=== PATIENT | male | born 1950 | race Caucasian/White ===

== ENCOUNTER → 2017-10-19 | Outpatient (CLI) | payer OTHER ==
[~2017-10-19] MED LIST: CARI350T28 PO; ECHI80CA PO; LISI40TA PO; MELO-83 PO; MULT-1027 PO; POTA99TA PO; PRLSR20 PO
--- NOTE | 2017-10-19 10:51 | DIAGNOSTIC IMAGING REPORT ---
CHEST 2 VIEWS ROUTINE CLINICAL HISTORY: Preoperative chest COMPARISON STUDY: No previous studies for comparison. FINDINGS: The cardiac and mediastinal contours are normal. There is no evidence of focal pulmonary consolidation. There is no evidence of failure. No pleural effusions are visualized.[ There are areas of presumed mild pleural thickening paralleling the left lateral chest wall. IMPRESSION: No active disease in the chest. Electronically signed by: Paul Rm M.D. 10/19/2017 10:49 AM Dictated Date/Time: 10/19/2017 10:48 AM
[2017-10-19 11:18] LABS: ALBUMIN 3.4 gm/dl (3.4-5.0); BLOOD UREA NITROGEN 16 mg/dl (7-18); CALCIUM 9.1 mg/dl (8.5-10.1); CARBON DIOXIDE 25 mmol/L (21-32); CREATININE 1.01 mg/dl (0.60-1.40); GLUCOSE 95 mg/dl (70-99); SODIUM 136 mmol/L (136-145)
[2017-10-19 11:24] LABS: PTT PATIENT 31.7 SECONDS (21.0-31.0)
[2017-10-19 11:26] LABS: HEMATOCRIT 46.2 % (42-52); HEMOGLOBIN 15.7 g/dL (14.0-18.0); MEAN CELL VOLUME 93.9 fL (80-100); MEAN CORPUSCULAR HEMOGLOBIN 31.9 pg (25-34); MEAN PLATELET VOLUME 10.2 fL (7.4-10.4); PLATELET COUNT 92 K/uL (130-400); RED CELL DISTRIBUTION WIDTH CV 13.7 % (11.5-14.5); WHITE BLOOD COUNT 5.55 K/uL (4.8-10.8)
[2017-10-19 11:37] LABS: ALBUMIN 3.3 gm/dl (3.4-5.0); TOTAL PROTEIN 8.8 gm/dl (6.4-8.2)
[2017-10-19 12:39] LABS: HEMOGLOBIN A1C 5.5 % (4.5-5.6)
== END | disposition home or self-care (01) ==
LOC: C.CPL 09:23
PROVIDERS: ATTEND Orthopaedic Surgery
DX: Z01.818 Encounter for other preprocedural examination (principal)

== ENCOUNTER 2017-11-18 04:48 | Inpatient (IN) | payer OTHER ==
[2017-10-14 13:42] VITALS: BMI 25.0
--- NOTE | 2017-10-16 15:45 | PAT Medication Instructions ---
Service Date Oct 16, 2017. Current Home Medication List Carisoprodol (Soma), 350 MG PO UD PRN for Muscle Spasms Echinacea (Echinacea), Unknown Dose PO QAM Lisinopril (Zestril), 40 MG PO BID Meloxicam (Meloxicam), 1 TAB PO UD PRN for PRN Multiple Vitamin (Multi Vitamin), 1 TAB PO QAM Omeprazole (Prilosec), 40 MG PO QAM Potassium (Potassium), Unknown Dose PO QAM Medication Instructions For Your Scheduled Surgery -Instructions per surgeon: Meloxicam (Meloxicam), 1 TAB PO UD PRN for PRN - Hold the following medications 2 weeks prior to surgery: Echinacea (Echinacea), Unknown Dose PO QAM - Hold the following medications the morning of surgery: Carisoprodol (Soma), 350 MG PO UD PRN for Muscle Spasms Lisinopril (Zestril), 40 MG PO BID Multiple Vitamin (Multi Vitamin), 1 TAB PO QAM Potassium (Potassium), Unknown Dose PO QAM - Take the following medications the morning of surgery with a sip of water: Omeprazole (Prilosec), 40 MG PO QAM - Take the following medications as scheduled the night before surgery: Carisoprodol (Soma), 350 MG PO UD PRN for Muscle Spasms (if needed) Lisinopril (Zestril), 40 MG PO BID If you have any questions please call us at [phone] or [phone] or [phone]
--- NOTE | 2017-10-19 09:36 | History and Physical ---
History & Physical Date Oct 19, 2017. Chief Complaint left knee pain History of Present Illness Mr Lu is a 67 year old male who is here for PRE-OPERATIVE VISIT, SCHEDULED FOR LEFT KNEE TKA TO BE PERFORMED BY DR. BURRELL ON 11/18/2017 AT [facility]. The symptoms occur intermittently and is unchanged. Currently the patient states that the symptoms are moderate-severe. The pain is described as aching, discomforting and throbbing. The symptoms occur intermittently. The symptoms are aggravated by daily activities, ascending stairs, descending stairs, first steps while awake, kneeling, movement, repetitive activities, sleeping on the affected side, squatting and walking. Yunior states that the symptoms are relieved by no specific activity. In addition to left knee pain the patient is also experiencing decreased mobility, difficulty bending, difficulty going to sleep, limping, nighttime awakening, pain, stiffness, tenderness and weakness. Pertinent negatives include chills and fever. The patient has had a previous x- ray and MRI. Prior NSAIDs include Mobic. Patient has been treated with previous visco supplementation, Supartz series of 3 injections. Patient has had arthroscopic surgery. 10/10/2015 Dr. Burrell performed left knee arthroscopy with PMM, PLM and Chondroplasty PFJ. 12/14/2014 Dr. Burrell performed left knee arthroscopy with PMM and Chondroplasty. Past Medical/Surgical History Hypertension smoking history, 2 cigarettes/day for over 20 years 7 alcoholic drinks per week Hepatitis h/o left knee arthroscopy x 2, 2014 and 2012 Additional History Hepatic Disease: Yes Hypertension: Yes Other: 5'11" 182 pounds O2 sats 98% Pulse- 84 BP 124/76 Allergies Coded Allergies: No Known Allergies (Unverified , 10/14/17) Home Medications Scheduled Echinacea (Echinacea), Unknown Dose PO QAM Lisinopril (Zestril), 40 MG PO BID Multiple Vitamin (Multi Vitamin), 1 TAB PO QAM Omeprazole (Prilosec), 40 MG PO QAM Potassium (Potassium), Unknown Dose PO QAM Scheduled PRN Carisoprodol (Soma), 350 MG PO UD PRN for Muscle Spasms Meloxicam (Meloxicam), 1 TAB PO UD PRN for PRN Physical Examination Skin: warm/dry, no rash Eyes: normal inspection, EOMI, sclerae normal ENT: normal ENT inspection, pharynx normal Head: normocephalic, atraumatic Neck: supple, no adenopathy, trachea midline Respiratory/Chest: lungs clear, normal breath sounds, no respiratory distress Cardiovascular: regular rate, rhythm, no edema, no murmur Addiitonal Comments: Left Knee Physical Exam: Exam Findings Details Ankle ROM L * Active ROM - Factors: normal, Description: active pain free range of motion. Passive ROM - Factors: normal, Description: passive pain free range of motion. Ankle ROM R * Active ROM - Factors: normal, Description: active pain free range of motion. Passive ROM - Factors: normal, Description: passive pain free range of motion. Hip ROM L * Active ROM - Factors: normal, Description: active pain free range of motion. Passive ROM - Factors: normal, Description: passive pain free range of motion. Hip ROM R * Active ROM - Factors: normal, Description: active pain free range of motion. Passive ROM - Factors: normal, Description: passive pain free range of motion. Knee ROM L * Active ROM - Flexion: 115 degrees, Extension: 3 degrees, Factors: pain, Description: active painful range of motion. Passive ROM - Flexion: 120 degrees, Extension: 3 degrees, Factors: pain, Description: passive painful range of motion. Knee ROM R * Active ROM - Factors: pain, Description: active painful range of motion. Passive ROM - Factors: pain, Description: passive painful range of motion. Strength LE Normal Strength Description - Normal lower extremity: Bilateral. Hip : Right: strength is normal, Left: strength is normal. Knee: Right: strength is normal, Left: strength is normal. Ankle/Foot: Right: strength is normal, Left: strength is normal. Constitutional Normal No acute distress. Well nourished. Well developed. Knee * Inspection - Gait: limp. Alignment - Right: varus, Clinical, Left: varus. Ecchymosis - Right: none, Left: none. Effusion - Right: mild, Left: moderate, supra-patella. Swelling - Right: mild, Left: moderate. Maximum tenderness - Right: diffuse, Left: diffuse. Patella exam - Crepitation - Right: moderate, Left: moderate. [facility]'s - lateral - Right: Positive, Left: Positive. [facility]'s - medial - Right: Positive, Left: Positive. Knee Comments Calf SNT, DP+2 Knee Normal Inspection - Atrophy - Right: Absent, Left: Absent. Patella exam - Apprehension - Right: Negative, Left: Negative. Nedra's - Right: Negative, Left: Negative. Posterior drawer - Left: Negative. Sag sign - Left: Negative. Anterior drawer - Left: Negative. Valgus stress - Right: Negative, Left: Negative. Varus stress - Right: Negative, Left: Negative. Extensor lag - Right: Normal, Left: Normal. Neurovascular LE Normal Neurovascular examination including reflexes, sensation , and pulses is within normal limits. Psychiatric Normal Orientation - Oriented to time, place, person & situation. Not anxious. Diagnostics: Study Result/Report X-RAY Knee 4 Or More Views LT knee Standing weight bearing flexed knee PA views reveal [id number] articulation tricompartmental of the knee, Joint space narrowing, Osteophyte formation is noted. DJD of the patellofemoral articulation. ASSESSMENT: Tricompartmental degenerative changes of the left knee. Diagnosis Left knee osteoarthritis Plan of Treatment Further care discussed with patient and at this point in time has failed conservative measures and would like to proceed with a left total knee replacement. Plan on discharge will be home with home health physical therapy. DVT prophalaxis with TEDs, SCDs and will also place on aspirin 81 mg p.o. b.i.d. for a month postop. Patient will have follow up appointment in our office two weeks post op for staple/suture removal and re-evaluation. Patient otherwise has no other questions or concerns.
[2017-10-19 09:37] VITALS: BMI 25.0
[~2017-11-18] VITALS: Ht 180.3 cm; Wt 82.5 kg
[2017-11-18] VITALS (9 sets, daily range): BP systolic 123–147; BP diastolic 71–87; PULSE 73–85; TEMP 36.5–36.8; O2SAT 76–98; Ht 180.3 cm; Wt 82.5 kg
[2017-11-18] MEDS ORDERED: TRAM-10 PO (05:32)
[2017-11-18 05:34] LABS: HEMATOCRIT 39.2 % (42-52); HEMOGLOBIN 13.5 g/dL (14.0-18.0); MEAN CELL VOLUME 93.1 fL (80-100); MEAN CORPUSCULAR HEMOGLOBIN 32.1 pg (25-34); MEAN PLATELET VOLUME 9.3 fL (7.4-10.4); PLATELET COUNT 112 K/uL (130-400); RED CELL DISTRIBUTION WIDTH CV 13.8 % (11.5-14.5); RED CELL DISTRIBUTION WIDTH SD 46.8 fL (36.4-46.3); WHITE BLOOD COUNT 4.72 K/uL (4.8-10.8)
[2017-11-18 05:41] LABS: MEAN CORPUSCULAR HGB CONC 34.4 g/dl (32-36)
[2017-11-18] MEDS ORDERED: ACETAMINOPHEN 500 MG TAB PO SCH (06:00)
[2017-11-18] MEDS ORDERED: CEFAZOLIN 2000MG IV PUSH 15 ML IV SCH (06:00)
[2017-11-18] MEDS ORDERED: METOCLOPRAMIDE HCL 10 MG TAB PO SCH (06:00)
[2017-11-18] MEDS ORDERED: ROPIVACAINE 5MG/ML 30 ML 150 MG, BUPIVACAINE 0.5% MPF INJ 30 ML, EpINEphrine HCL INJ 0.... INFIL SCH ×8 (06:00)
[2017-11-18] MEDS ORDERED: FAMOTIDINE 20 MG TAB PO SCH (06:00)
[2017-11-18] MEDS ORDERED: GABAPENTIN 300 MG CAP PO SCH (06:00)
[2017-11-18] MEDS ORDERED: CeleBREX 200 MG CAP PO SCH (06:00)
[2017-11-18] MEDS ORDERED: DEXAMETHASONE 4 MG TAB PO SCH (06:00)
[2017-11-18] MEDS ORDERED: LACTATED RINGER'S 1000ML 500 ML IV SCH (06:00)
[2017-11-18] MEDS ORDERED: LACTATED RINGER'S 1000ML 1,000 ML IV SCH (06:00)
[2017-11-18] MEDS ORDERED: PROPOFOL IV EMULSION 10 MG/ML 20 ML VIAL ONE ×3 (06:13→08:24)
[2017-11-18] MEDS ORDERED: MIDAZOLAM HCL 1 MG/ML 2ML VIAL ONE (06:13)
[2017-11-18] MEDS ORDERED: LIDOCAINE HCL 2% 2 ML VIAL (20MG/ML) ONE (06:13)
[2017-11-18] MEDS ORDERED: FENTANYL CITRATE INJ 50 MCG/1 ML 2 ML VIAL ONE ×2 (06:14→08:04)
[2017-11-18] MEDS ORDERED: ROPIVACAINE 0.5% 5 MG/ML 30 ML VIAL ONE (06:29)
[2017-11-18] MEDS ORDERED: BUPIVACAINE 0.5 % 5 MG/1 ML PF 10ML VIAL ONE (06:29)
[2017-11-18] MEDS ORDERED: POVIDONE-IODINE OP SOLN 30 ML BTL ONE (06:56)
[2017-11-18] MEDS ORDERED: BACITRACIN 50000 UNIT VIAL ONE (06:56)
[2017-11-18] MEDS ORDERED: ORTHO JOINT ANESTHETIC ONE (06:56)
[2017-11-18] MEDS: TRANEXAMIC ACID INJ 1,000 MG x 2 Bags IV SCH ×4 (06:57→11:03)
--- NOTE | 2017-11-18 07:11 | History & Physical Bridge Note ---
H&P Re-Evaluation Bridge Note: I have examined the patient, reviewed the History & Physical and in the interval since the performance of the History & Physical I have noted the following changes of clinical significance: No changes noted
[2017-11-18] MEDS ORDERED: EpHEDrine SULFATE 50MG/5ML SYR ONE (07:40)
[2017-11-18] MEDS ORDERED: ONDANSETRON INJ 2 MG/ML 2 ML VIAL ONE (07:40)
[2017-11-18] MEDS ORDERED: HYDROmorphone INJ 1 MG/ML SYR IV PRN (08:00)
[2017-11-18] MEDS ORDERED: ONDANSETRON INJ 2 MG/ML 2 ML VIAL IV PRN ×2 (08:00→09:15)
[2017-11-18] MEDS ORDERED: EpHEDrine SULFATE INJ 50 MG/ML AMP IV PRN (08:00)
[2017-11-18] MEDS ORDERED: MEPERIDINE HCL 25 MG/ML CARP IV PRN (08:00)
[2017-11-18] MEDS ORDERED: ATROPINE SULFATE 0.1 MG/ML 5ML SYR IV PRN (08:00)
[2017-11-18] MEDS ORDERED: FENTANYL CITRATE INJ 50 MCG/1 ML 2 ML VIAL IV PRN (08:00)
[2017-11-18] MEDS ORDERED: LABETALOL HCL IV 5 MG/ML 20ML IV PRN (08:00)
--- NOTE | 2017-11-18 08:29 | [facility] Post Operative Brief Note ---
Immediate Operative Summary Operative Date Nov 18, 2017. Pre-Operative Diagnosis Left knee osteoarthritis Post-Operative Diagnosis Left knee osteoarthritis Procedure(s) Performed Left Total Knee Arthroplasty utilizing [employer] journey to patient match total knee arthroplasty size 5 femur 4 tibia with a 14 mm x 100 mm stem 12 mm polyethylene and [address] Melonie Stapleton Sisal Picker Surgeon(s) Naman Maldonado PA-C Estimated Blood Loss 5mL Findings Consistent with Post-Op Diagnosis Specimens A: Left knee bone & tissue Anesthesia Type MAC Spinal Regional Complication(s) none Disposition Disposition: Recovery Room / PACU
--- NOTE | 2017-11-18 08:31 | [facility] Operative Report ---
Operative Report Operative Date Nov 18, 2017. Pre-Operative Diagnosis Left knee osteoarthritis Post-Operative Diagnosis Left knee osteoarthritis Procedure(s) Performed Left Total Knee Arthroplasty utilizing [employer] journey to patient match total knee arthroplasty size 5 femur 4 tibia with a 14 mm x 100 mm stem 12 mm polyethylene and [address] Melonie Stapleton Supervisor Process Testing Surgeon(s) Naman Maldonado PA-C Estimated Blood Loss 5mL Findings Patient presents with severe end-stage DJD of the left knee and no response to conservative measures including injections physical therapy anti-inflammatories relative rest activity modification patient has severe DJD with bone loss subchondral cystic changes which are significant there is a large posterior tibial plateau cyst multiple cyst within the femur marginal osteophyte subchondral sclerosis were all found the bone was noted be very soft nature as well with marketed synovitis a significant synovectomy was performed as well as curettage and tibial and femoral bone cysts. Specimens A: Left knee bone & tissue Anesthesia Type MAC Spinal Regional Complication(s) none Disposition Recovery Room / PACU Indications Patient presents after failing attempts at conservative management including physical therapy anti-inflammatories relative rest activity modification severe end-stage DJD of the left knee preoperative findings and intraoperative findings were noted above patient's failed attempts at conservative management presents for total knee arthroplasty time surgery due to softened bone and multiple cystic changes in the tibia a stem prosthesis on the tibia was placed the bone cysts were filled with methylmethacrylate wound was thoroughly irrigated implant that had been placed on a dry surface Description of Procedure After proper prepping and draping of the left lower extremity anterior midline incision was made over the region of the extensor extensor mechanism after meticulous hemostasis was obtained and maintained in subcutaneous tissues a medial parapatellar incision was made The patella was subluxed lateralward the medial lateral gutter were cleaned from any hypertrophic synovitis and scar tissue of the distal femoral block was placed and the distal femoral osteotomy cut was made subsequently the chamfers anterior and posterior osteotomy cuts were made utilizing the 4-in-1 block the tibia was subsequently subluxed anteriorward medial and ateral meniscal remnants were excised in their entirety remnants of the anterior and posterior cruciate ligaments were excised in their entirety excellent exposure of the proximal tibia was obtained the tibial osteotomy guide was placed on the proximal tibial osteotomy cut was made once again the knee was irrigated with copious amounts of sterile saline solution the patella was subsequently everted lateralward thickened scar tissue around the patella was removed the patella was subsequently cut utilizing a freehand technique and was drilled prepared for final preparation and placement of patella socially flexion-extension gaps were checked and the equal and symmetric trials were placed to the appropriate femoral and tibial trials with poly-spacer being placed for equal flexion and extension gaps and full range of motion including extension to 0 and flexion to 140 the trial components after having been taken to recovery range of motion was subsequently removed meticulous hemostasis was obtained and maintained subsequently a knee block injection of joint cocktail including ropivacaine 0.5% 150 mg. Bupivacaine 0.5 % epinephrine 1-200,030 mL's toradol 30 mg dexamethasone 4 mg ketamine 10 mg clonidine 100 micrograms normal saline solution 30 mg was infiltrated into the soft tissues of the posterior knee medial lateral gutters and periosteal synovium special attention was paid to protect neurovascular structures at all times subsequently trial components having been removed the knee was irrigated with sterile saline solution. debris was removed the proximal tibia was subsequently prepared and was made ready for the placement of the tibial component tibial component was also cemented and tamped into position the femoral component was subsequently placed and cemented in the position the patellar component was subsequently cemented in position because hemostasis once again obtained and maintained wound having been thoroughly irrigated with debridement and debridement lavage was performed as well as a medial parapatellar incision closed with #1 Vicryl in interrupted fashion subcutaneous was closed with #2 Vicryl skin was closed with skin clips. PA-C was necessary for prepping and drapping as well as wound closure of deep fascia Sub cutaneous tissue and skin and was necessary for the case. A sterile compressive dressing was placed patient was taken to recovery in stable condition of report dictated by Pieter I attest to the content of the Intraoperative Record and any orders documented therein. Any exceptions are noted below. I attest to the content of the Intraoperative Record and any orders documented therein. Any exceptions are noted below.
[2017-11-18] MEDS ORDERED: TRAMADOL HCL 50 MG TAB PO PRN (09:15)
[2017-11-18] MEDS ORDERED: MoRPHine SULFATE 2 MG/ML CARP IV PRN ×2 (09:15→11:15)
[2017-11-18] MEDS ORDERED: ALUMINUM/MAGNESIUM/SIMETH (MAALOX MAX) 30 ML UDC PO PRN (09:15)
[2017-11-18] MEDS ORDERED: MAGNESIUM HYDROXIDE SUSP 30 ML UDC PO PRN (09:15)
[2017-11-18] MEDS ORDERED: BISACODYL 10 MG SUPP PR PRN (09:15)
[2017-11-18] MEDS ORDERED: ZOLPIDEM TARTRATE 5 MG TAB PO PRN (09:15)
[2017-11-18] MEDS ORDERED: KETOROLAC TROMETHAMINE 15 MG/ML VIAL IV. PRN (09:15)
[2017-11-18] MEDS ORDERED: SOD PHOSPHATE/SOD BIPHOSPHATE ENEMA 132 ML BTL PR PRN (09:15)
--- NOTE | 2017-11-18 09:31 | DIAGNOSTIC IMAGING REPORT ---
L KNEE 1 OR 2 VIEWS ROUTINE CLINICAL HISTORY: Postoperative evaluation. COMPARISON: Left knee radiographs October 09, 2017 and MRI of the left knee October 19, 2017. FINDINGS: Alignment of the total left knee arthroplasty is anatomic. There is no fracture or unexpected radiopaque foreign body. Surgical drains are in place. IMPRESSION: Expected findings following total left knee arthroplasty Electronically signed by: Hiren Rivera M.D. 11/18/2017 9:30 AM Dictated Date/Time: 11/18/2017 9:29 AM
--- NOTE | 2017-11-18 11:02 | Anesthesiology Progress Note ---
Anesthesia Post Op Note Date & Time Nov 18, 2017 at 11:02 Vital Signs Pain Intensity: 0 Vital Signs Past 12 Hours Date Time Temp Pulse Resp B/P (MAP) Pulse Ox O2 Delivery O2 Flow Rate FiO2 11/18/17 10:26 85 18 145/87 (106) 97 2.0 11/18/17 10:00 97 Nasal Cannula 2.0 11/18/17 10:00 97 Nasal Cannula 2.0 11/18/17 10:00 36.5 73 16 124/71 (88) 97 Nasal Cannula 2.0 11/18/17 09:45 36.9 74 16 127/80 98 Nasal Cannula 2 11/18/17 09:40 85 16 142/87 100 Nasal Cannula 2 11/18/17 09:30 80 16 145/77 100 Nasal Cannula 2 11/18/17 09:20 69 16 119/77 99 Nasal Cannula 2 11/18/17 09:10 85 20 118/73 99 Nasal Cannula 2 11/18/17 09:04 36.3 77 20 117/69 99 Nasal Cannula 2 11/18/17 05:41 36.5 74 20 147/ 97 Room Air Notes Mental Status: alert / awake / arousable, participated in evaluation Pt Amnestic to Procedure: Yes Nausea / Vomiting: adequately controlled Pain: adequately controlled Airway Patency, RR, SpO2: stable & adequate BP & HR: stable & adequate Hydration State: stable & adequate Neuraxial Anesthesia: was administered, sensory block is resolving Anesthetic Complications: no major complications apparent
[2017-11-18] MEDS: D5W AND 1/2NSS + 20MEQ KCL 1,000 ML IV SCH ×2 (11:04→20:41)
[2017-11-18] MEDS ORDERED: MoRPHine SULFATE 4 MG/ML 1 ML CARP\\VIAL IV PRN (11:15)
[2017-11-18] MEDS ORDERED: MoRPHine SULFATE 10 MG/ML CARP/VIAL IV PRN (11:15)
[2017-11-18] MEDS: ACETAMINOPHEN 500 MG TAB PO SCH ×2 (14:11→21:40)
[2017-11-18] MEDS: CEFAZOLIN IV 2,000 MG in SYRINGE 0 ML IV SCH (15:52)
[2017-11-18] MEDS ORDERED: CEFAZOLIN IV 2,000 MG in DEXTROSE 5% 50ML 50 ML IV SCH (16:00)
[2017-11-18] MEDS: DOCUSATE SODIUM 100 MG CAP PO SCH (20:42)
[2017-11-18] MEDS: SENNA 8.6 MG TAB PO SCH (20:42)
[2017-11-18] MEDS: LISINOPRIL 40 MG TAB PO SCH (20:43)
[2017-11-18] MEDS: ASPIRIN 81 MG ECTAB PO SCH (20:43)
[2017-11-18] MEDS: OXYCODONE HCL IR 5 MG TAB (IMMEDIATE RELEASE) PO PRN (21:41)
[2017-11-19] MEDS: CEFAZOLIN IV 2,000 MG in SYRINGE 0 ML IV SCH (00:26)
[2017-11-19 03:20] VITALS: BP 136/79; PULSE 74; TEMP 36.6; O2SAT 98
[2017-11-19] MEDS: OXYCODONE HCL IR 5 MG TAB (IMMEDIATE RELEASE) PO PRN ×4 (04:47→19:45)
[2017-11-19] MEDS: D5W AND 1/2NSS + 20MEQ KCL 1,000 ML IV SCH (04:50)
[2017-11-19] MEDS: ACETAMINOPHEN 500 MG TAB PO SCH ×3 (05:34→20:54)
[2017-11-19 07:04] LABS: HEMATOCRIT 34.3 % (42-52); HEMOGLOBIN 11.8 g/dL (14.0-18.0); MEAN CELL VOLUME 92.5 fL (80-100); MEAN CORPUSCULAR HEMOGLOBIN 31.8 pg (25-34); MEAN CORPUSCULAR HGB CONC 34.4 g/dl (32-36); RED CELL DISTRIBUTION WIDTH CV 13.7 % (11.5-14.5); RED CELL DISTRIBUTION WIDTH SD 46.3 fL (36.4-46.3); WHITE BLOOD COUNT 4.88 K/uL (4.8-10.8)
[2017-11-19 07:18] VITALS: BP 149/87; PULSE 75; TEMP 36.8; O2SAT 98
[2017-11-19 07:23] LABS: INR 1.1 (0.9-1.1)
[2017-11-19 07:34] LABS: MEAN PLATELET VOLUME 9.7 fL (7.4-10.4); PLATELET COUNT 94 K/uL (130-400)
[2017-11-19 07:43] LABS: CALCIUM 8.4 mg/dl (8.5-10.1); CREATININE 0.81 mg/dl (0.60-1.40); POTASSIUM 4.2 mmol/L (3.5-5.1)
[2017-11-19] MEDS: MULTIVITAMIN TAB PO SCH (08:40)
[2017-11-19] MEDS: LISINOPRIL 40 MG TAB PO SCH ×2 (08:40→20:54)
[2017-11-19] MEDS: PANTOprazole SOD 40 MG TAB PO SCH (08:41)
[2017-11-19] MEDS: ASPIRIN 81 MG ECTAB PO SCH ×2 (08:41→20:52)
[2017-11-19] MEDS: DOCUSATE SODIUM 100 MG CAP PO SCH ×2 (08:41→20:52)
--- NOTE | 2017-11-19 09:32 | Orthopedic Progress Note ---
Orthopedic Progress Note Date of Service Nov 19, 2017. Subjective Post OP Day: 1 Reports: feeling well, complaints (mild pain in the knee this AM), Denies: chest pain, SOB, nausea / vomiting, light headedness, calf pain Additional Notes: Pt states he had a BM this AM. Discussed possible dc home today. Pt unsure if he wants to go home today vs tomorrow. Will decide later today pending PT etc. Objective calves soft nontender, N/V intact, dressing C/D/I, A&O x3, toes mobile, hemovac drainage (50ml latest shift) Date Time Temp Pulse Resp B/P (MAP) Pulse Ox O2 Delivery O2 Flow Rate FiO2 11/19/17 07:30 Room Air 11/19/17 07:18 36.8 75 18 149/87 (107) 98 Room Air 11/19/17 03:20 36.6 74 20 136/79 (98) 98 Room Air 11/19/17 00:30 Room Air 11/18/17 23:24 36.5 74 18 134/79 (97) 97 Room Air 11/18/17 19:34 36.5 79 16 129/73 (91) 97 Room Air 11/18/17 16:25 36.8 77 16 136/74 (94) 95 Room Air 11/18/17 16:01 Room Air 11/18/17 13:00 78 18 123/75 (91) 76 2.0 11/18/17 12:00 85 18 131/79 (96) 98 2.0 11/18/17 11:02 75 16 135/79 (97) 98 11/18/17 10:26 85 18 145/87 (106) 97 2.0 11/18/17 10:00 97 Nasal Cannula 2.0 11/18/17 10:00 97 Nasal Cannula 2.0 11/18/17 10:00 36.5 73 16 124/71 (88) 97 Nasal Cannula 2.0 11/18/17 09:45 36.9 74 16 127/80 98 Nasal Cannula 2 11/18/17 09:40 85 16 142/87 100 Nasal Cannula 2 11/18/17 09:30 80 16 145/77 100 Nasal Cannula 2 Laboratory Results 24 Hours: Test 11/19/17 06:18 Hematocrit 34.3 % Hemoglobin 11.8 g/dL Prothromb Time International Ratio 1.1 Prothrombin Time 11.2 SECONDS Assessment & Plan Assessment: POD 1 s/p Left TKA Plan: PT/OT Planning for HH Services upon DC Inhouse Planning Pain Management: Celebrex, Ultram, Morphine, PO Tylenol, Oxy IR DVT Prophylaxis: TEDs, SCDs, ASA Discharge Planning Discharge Planning: home with home health
[2017-11-19] MEDS ORDERED: ACET-24 PO (09:36)
[2017-11-19] MEDS ORDERED: SENN-61 PO (09:36)
[2017-11-19] MEDS ORDERED: CLB200 PO (09:36)
[2017-11-19] MEDS ORDERED: ASPI-461 PO (09:36)
[2017-11-19] MEDS ORDERED: RXC5 PO (09:36)
--- NOTE | 2017-11-19 09:45 | Discharge Instructions ---
Discharge Instructions Date of Service Nov 19, 2017. Admission Reason for Admission: Left Knee Osteoarthritis Discharge Discharge Diagnosis / Problem: Left Knee Osteoarthritis Discharge Goals Goal(s): Decrease discomfort, Improve function, Increase independence Activity Recommendations Activity Limitations: per Instructions/Follow-up section Weightbearing Status: Left weightbearing (as tolerated) . Instructions / Follow-Up Instructions / Follow-Up ACTIVITY RECOMMENDATIONS: SELF CARE INSTRUCTIONS AFTER TOTAL KNEE REPLACEMENT A. You may need to continue a physical therapy program after discharge from the hospital. There are several options available to you. Your doctor will assist you in selecting the best one for you. 1. An out-patient facility 2 to 3 times a week for therapy or home therapy. 2. Continue working on all exercises taught to you in the hospital. Your goals should be to increase bending of your knee to 90 degrees and beyond and to fully straighten your knee. B. You may progress at your own pace from walking with a walker or crutches to a cane; then to no assistive devices. C. Make walking a part of your daily routine. Be up as much as comfortable with rest periods throughout the day. Rest with leg elevation is very important. Use the ice wrap frequently for the first 3-4 weeks. D. There are no restrictions on activities. You may ride in a car, shop, participate in residence supervisor and all social activities. E. Wear the long elastic stockings (KRISTIN hose) 20 hours a day for 2 weeks after surgery. They can be removed several times a day for laundering and for a bath. F. You may shower, no tub baths until cleared by your doctor. YOU WILL BE TAKING OXYCODONE FOR PAIN CONTROL. PLEASE DO NOT TAKE YOUR TRAMADOL AT THIS TIME. KNOW THAT TAKING THE TRAMADOL (AND YOUR MUSCLE RELAXER CARISOPRODOL) CAN INCREASE YOUR DROWSINESS AND OR SLOW DOWN OR STOP YOUR BREATHING WHEN COUPLED WITH YOUR OXYCODONE. PLEASE CALL THE OFFICE IF YOUR PAIN IS NOT CONTROLLED. SPECIAL CARE INSTRUCTIONS: VERY IMPORTANT TO READ AND REVIEW A. There are a few signs you need to watch for after you are home. Call [facility] if you notice any of the followin. Increased severe knee pain. Some pain is expected especially when you exercise. 2. Increased swelling in your leg or knee; pain or swelling of the calf muscle in either lower leg. 3. Any fluid drainage from the incision. 4. Shortness of breath or chest pain. B. Please call [facility] at if you have any concerns or questions about your operation or recovery. The doctor or his nurse will return your call promptly. C. You must take antibiotics before dental work, bladder, bowel or other surgery. Your doctor will provide you with a permanent care to carry describing this precaution. IMPORTANT: * REMEMBER TO TAKE ASPIRIN, 81 MG, TWICE DAILY FOR 4 WEEKS UNLESS OTHERWISE DIRECTED. THIS IS YOUR BLOOD THINNER. * HIGH RISK PATIENTS MAY BE PRESCRIBED A STRONGER BLOOD THINNER. THIS WILL BE PROVIDED AT DISCHARGE. * CALL IF INCREASED PAIN, REDNESS, DRAINAGE OR FEVER GREATER THAT 101. * WEAR KRISTIN HOSE 20 HOURS PER DAY FOR 2 WEEKS. * DERMABOND Prineo- This is a mesh tape dressing that is covered with glue. It should remain in place until the incision is properly healed, usually 10-14 days. This dressing is designed to naturally slough off. You may trim the excess mesh tape as it peels off. Incision may be briefly wet in a shower. Dry immediately by blotting with a clean, dry towel. Do not bath or swim until instructed by your doctor. Do not scratch, rub, or pick at the dressing. Do not apply any topical ointments or lotions until dressing is completely removed and/or instructed by your doctor. There may be a small piece of suture material at one end of your incision. Do not pull or trim this. If it is bothersome or catching on clothing, you may cover it with a band-aid. . FOLLOW UP VISIT: If appointment is not already scheduled: Please call [facility] to make a follow-up appointment for 2 weeks after your surgery at . Current Hospital Diet Patient's current hospital diet: Regular Diet Discharge Diet Recommended Diet: Regular Diet Procedures Procedures Performed: Left Total Knee Arthroplasty utilizing [employer] journey to patient match total knee arthroplasty size 5 femur 4 tibia with a 14 mm x 100 mm stem 12 mm polyethylene and 32 oval patella Pending Studies Studies pending at discharge: no Laboratory Results Hemoglobin A1c Test 10/19/17 10:15 Range/Units Estimated Average Glucose 111 mg/dl Hemoglobin A1c 5.5 4.5-5.6 % Medical Emergencies . Who to Call and When: Medical Emergencies: If at any time you feel your situation is an emergency, please call 911 immediately. . Non-Emergent Contact Non-Emergency issues call your: Surgeon Call Non-Emergent contact if: temperature is above 101.5, your pain is not controlled, your pain is worsening, wound has increased drainage, wound has increased redness . "Provider Documentation" section prepared by Pop Almaraz. . [place] Drug Monitoring Program Search Results: patient reviewed within database, see additional documentation Drug Monitoring Findings: Pt taking Tramadol prn which will be held during the post operative period. Also taking Carisoprodol for muscle relaxation.
[2017-11-19 11:08] VITALS: BP 156/91; PULSE 69; TEMP 36.8; O2SAT 97
[2017-11-19 15:21] VITALS: BP 150/90; PULSE 83; TEMP 36.6; O2SAT 98
[2017-11-19] MEDS: SENNA 8.6 MG TAB PO SCH (20:52)
[2017-11-19] MEDS: CeleBREX 200 MG CAP PO SCH (20:53)
[2017-11-19 23:34] VITALS: BP 168/99; PULSE 89; TEMP 36.9; O2SAT 97
[2017-11-20 05:00] VITALS: BP 154/95
[2017-11-20] MEDS: ACETAMINOPHEN 500 MG TAB PO SCH (05:49)
[2017-11-20 06:37] VITALS: BP 164/99; PULSE 73; TEMP 36.7; O2SAT 99
[2017-11-20] MEDS: LISINOPRIL 40 MG TAB PO SCH (07:35)
[2017-11-20] MEDS: MULTIVITAMIN TAB PO SCH (07:35)
[2017-11-20] MEDS: CeleBREX 200 MG CAP PO SCH (07:35)
[2017-11-20] MEDS: DOCUSATE SODIUM 100 MG CAP PO SCH (07:35)
[2017-11-20] MEDS: ASPIRIN 81 MG ECTAB PO SCH (07:36)
[2017-11-20] MEDS: PANTOprazole SOD 40 MG TAB PO SCH (07:36)
[2017-11-20] MEDS: OXYCODONE HCL IR 5 MG TAB (IMMEDIATE RELEASE) PO PRN ×3 (07:38→12:03)
--- NOTE | 2017-11-20 09:22 | Orthopedic Progress Note ---
Orthopedic Progress Note Date of Service Nov 20, 2017. Subjective Post OP Day: 2 Reports: feeling well, Denies: complaints Additional Notes: Feeling much better today. Pain control is good today. Just finished PT and doing well. Wanting to go home today. Objective calves soft nontender, N/V intact, incision C/D/I, A&O x3, toes mobile Date Time Temp Pulse Resp B/P (MAP) Pulse Ox O2 Delivery O2 Flow Rate FiO2 11/20/17 07:50 Room Air 11/20/17 06:37 36.7 73 14 164/99 (120) 99 Room Air 11/20/17 05:00 154/95 (114) 11/20/17 00:15 Room Air 11/19/17 23:34 36.9 89 16 168/99 (122) 97 Room Air 11/19/17 15:21 36.6 83 16 150/90 (110) 98 Room Air 11/19/17 15:05 Room Air 11/19/17 11:08 36.8 69 17 156/91 (112) 97 Room Air Assessment & Plan Assessment: POD 2 s/p Left TKA Plan: PT/OT Planning for HH Services upon DC DC to home today Inhouse Planning Pain Management: Celebrex, Ultram, Morphine, PO Tylenol, Oxy IR DVT Prophylaxis: TEDs, SCDs, ASA Discharge Planning Discharge Planning: home with home health
[2017-11-20 09:25] VITALS: BP 164/99; PULSE 73; TEMP 36.7; O2SAT 99
[2017-11-20] MEDS ORDERED: RXC5 PO (09:25)
--- NOTE | 2017-11-20 15:20 | Discharge Summary ---
Orthopedic Discharge Summary Admission Date/Reason Nov 18, 2017 at 06:45 Left Knee Osteoarthritis. Discharge Date/Disposition Nov 20, 2017 Home with services Diagnosis Principal Diagnosis: LEFT KNEE OSTEOARTHRITIS Procedure(s) Performed Left Total Knee Arthroplasty utilizing [facility] journey to patient match total knee arthroplasty size 5 femur 4 tibia with a 14 mm x 100 mm stem 12 mm polyethylene and 32 oval patella Consultations NONE Medication Reconciliation New Medications: Acetaminophen (Sb Non-Aspirin Extra Stre) 500 Mg Tab 1000 MG PO Q8H for 14 Days, #84 TAB Aspirin (Aspirin) 81 Mg Tab 81 MG PO BID for 30 Days, #60 TAB Celecoxib (Celebrex) 200 Mg Cap 200 MG PO BID, #60 CAP Oxycodone HCl (Oxycodone HCl) 5 Mg Tab 5-10 MG PO q4-6h PRN for Pain, #30 TAB Senna (Senokot) 8.6 Mg Tab 17.2 MG PO HS, #30 TAB Continued Medications: Carisoprodol (Soma) 350 Mg Tab 350 MG PO UD PRN for Muscle Spasms, TAB Echinacea (Echinacea) Unknown Strength Cap Unknown Dose PO QAM Lisinopril (Zestril) 40 Mg Tab 40 MG PO BID, TAB Multiple Vitamin (Multi Vitamin) 1 Tab Tab 1 TAB PO QAM "OMEGA MAN" MULTIVITAMIN Omeprazole (Prilosec) 20 Mg Capcr 40 MG PO QAM, CAP PRN ORDERS FOR THIS MED Potassium (Potassium) Unknown Strength Tab Unknown Dose PO QAM Discontinued Medications: Meloxicam (Meloxicam) 15 Mg Tab 1 TAB PO UD PRN for PRN Tramadol (Ultram) 50 Mg Tab 50 MG PO Q6H PRN for Pain, TAB Admission Physical Exam As per Admitting History & Physical. Hospital Course Patient was a same day admission after undergoing a successful left TKA. He tolerated the procedure well. Post-operatively, his activity was progressed and well tolerated. Please refer to daily progress notes and PT notes for complete details. After exam on 11/20/17, patient felt to be stable for discharge home with HHPT. Patient will f/u in the office in 2 weeks for further evaluation including x-rays and incision check, sooner if having any issues or concerns. Below are pertinent labs/studies during their hospital stay: Last Resulted CBC 11/19/17 06:18 Last Resulted BMP 11/19/17 06:18 Last Vital Signs Documentation Date Time Temp Pulse Resp B/P (MAP) Pulse Ox O2 Delivery O2 Flow Rate FiO2 11/20/17 09:25 36.7 73 14 99 Room Air 11/20/17 06:37 164/99 (120) 11/18/17 13:00 2.0 Discharge Instructions ACTIVITY RECOMMENDATIONS: SELF CARE INSTRUCTIONS AFTER TOTAL KNEE REPLACEMENT A. You may need to continue a physical therapy program after discharge from the hospital. There are several options available to you. Your doctor will assist you in selecting the best one for you. 1. An out-patient facility 2 to 3 times a week for therapy or home therapy. 2. Continue working on all exercises taught to you in the hospital. Your goals should be to increase bending of your knee to 90 degrees and beyond and to fully straighten your knee. B. You may progress at your own pace from walking with a walker or crutches to a cane; then to no assistive devices. C. Make walking a part of your daily routine. Be up as much as comfortable with rest periods throughout the day. Rest with leg elevation is very important. Use the ice wrap frequently for the first 3-4 weeks. D. There are no restrictions on activities. You may ride in a car, shop, participate in veneer sample maker and all social activities. E. Wear the long elastic stockings (KRISTIN hose) 20 hours a day for 2 weeks after surgery. They can be removed several times a day for laundering and for a bath. F. You may shower, no tub baths until cleared by your doctor. SPECIAL CARE INSTRUCTIONS: VERY IMPORTANT TO READ AND REVIEW A. There are a few signs you need to watch for after you are home. Call [facility] if you notice any of the followin. Increased severe knee pain. Some pain is expected especially when you exercise. 2. Increased swelling in your leg or knee; pain or swelling of the calf muscle in either lower leg. 3. Any fluid drainage from the incision. 4. Shortness of breath or chest pain. B. Please call [facility] at if you have any concerns or questions about your operation or recovery. The doctor or his nurse will return your call promptly. C. You must take antibiotics before dental work, bladder, bowel or other surgery. Your doctor will provide you with a permanent care to carry describing this precaution. IMPORTANT: * REMEMBER TO TAKE ASPIRIN, 81 MG, TWICE DAILY FOR 4 WEEKS UNLESS OTHERWISE DIRECTED. THIS IS YOUR BLOOD THINNER. * HIGH RISK PATIENTS MAY BE PRESCRIBED A STRONGER BLOOD THINNER. THIS WILL BE PROVIDED AT DISCHARGE. * CALL IF INCREASED PAIN, REDNESS, DRAINAGE OR FEVER GREATER THAT 101. * WEAR KRISTIN HOSE 20 HOURS PER DAY FOR 2 WEEKS. * DERMABOND Prineo- This is a mesh tape dressing that is covered with glue. It should remain in place until the incision is properly healed, usually 10-14 days. This dressing is designed to naturally slough off. You may trim the excess mesh tape as it peels off. Incision may be briefly wet in a shower. Dry immediately by blotting with a clean, dry towel. Do not bath or swim until instructed by your doctor. Do not scratch, rub, or pick at the dressing. Do not apply any topical ointments or lotions until dressing is completely removed and/or instructed by your doctor. There may be a small piece of suture material at one end of your incision. Do not pull or trim this. If it is bothersome or catching on clothing, you may cover it with a band-aid. FOLLOW UP VISIT: If appointment is not already scheduled: Please call [facility] to make a follow-up appointment for 2 weeks after your surgery at .
== END 2017-11-20 12:32 | disposition home health service (06) | DRG 470 ==
LOC: C.ACU 04:48 → C.3E 06:45 → ENRESERV 09:21
PROVIDERS: ADMIT Orthopaedic Surgery; ATTEND Orthopaedic Surgery
PROC: 0SRD0J9 Replacement of Left Knee Joint with Synthetic Substitute, Cemented, Open Approach (ICD-10-PCS; principal; 2017-11-18 07:15)
DX: M17.12 Unilateral primary osteoarthritis, left knee (principal); M85.68 Other cyst of bone, other site; I10 Essential (primary) hypertension; F17.210 Nicotine dependence, cigarettes, uncomplicated; Z79.899 Other long term (current) drug therapy